=== PATIENT | male | born 1995 ===

== ENCOUNTER 2018-07-14 10:18 | Outpatient (CLI) | payer OTHER ==
[~2018-07-14] VITALS: Ht 177.8 cm; Wt 145.1 kg
[2018-07-14] MEDS ORDERED: DERMOTIC20 ML OTIC (13:52)
== END 2018-07-14 10:35 | disposition home or self-care (01) ==
LOC: OFIC 805 10:18
DX: H92.01 Otalgia, right ear (principal); H61.23 Impacted cerumen, bilateral; J35.1 Hypertrophy of tonsils

== ENCOUNTER → 2019-10-02 | Emergency (ER) | payer OTHER ==
[~2019-10-02] VITALS: Ht 180.3 cm; Wt 145.1 kg
[~2019-10-02] MED LIST: DERMOTIC20 ML OTIC; KETO10TA2 PO
== END | disposition home or self-care (01) ==
LOC: ER 20:03
DX: S90.01XA Contusion of right ankle, initial encounter (principal); S90.31XA Contusion of right foot, initial encounter; W22.8XXA Striking against or struck by other objects, initial encounter; Y93.89 Activity, other specified; Y92.89 Other specified places as the place of occurrence of the external cause; Y99.8 Other external cause status

== ENCOUNTER 2021-03-06 09:13 | Outpatient (CLI) | payer OTHER | END 2021-03-06 10:00 | disposition home or self-care (01) | LOC: SONOGRAMA 09:13 | DX: M25.561 Pain in right knee (principal); M25.511 Pain in right shoulder; S20.229A Contusion of unspecified back wall of thorax, initial encounter; G89.11 Acute pain due to trauma; M25.571 Pain in right ankle and joints of right foot ==